=== PATIENT | female | born 1945 | race Caucasian/White ===

== ENCOUNTER → 2021-03-14 | Outpatient (CLI) | payer MEDICARE, OTHER ==
[~2021-03-14] MED LIST: DICLOFENAC GEL 1% TOP; DITROPAN 5 MG TA5 MG PO; DOCUSATE SODIU250 MG PO; HYDROCODON-ACE1 EAC6 PO; HYDROCODONE-AC1 EACH PO; IBUPROFEN600 MG PO; KLONOPIN1 MG PO; LACTULOSE10 GM/15 M PO; LEVOTHYROXINE50 MC1 PO; LEVSIN-SL0.125 MG SL; MAGNESIUM200 MG PO; PRAVASTATIN SOD40 MG PO; PROTONIX40 MG PO; STOOL SOFTNER PO; SUCRALFATE PO; TERCONAZOLE 0.4% TOP; TRAZODONE HCL100 MG PO; VITAMIN D3125 MCG PO; XYZAL5 MG PO
[2021-03-14 13:51] LABS: HEMOGLOBIN 13.9 gm/dl (12.3-15.3); RED BLOOD COUNT 4.66 M/UL (4.00-5.10); WHITE BLOOD COUNT 6.8 K/UL (4.5-11.0)
== END ==
LOC: OPSV2 12:30
PROVIDERS: Obstetrics & Gynecology
DX: Z01.818 Encounter for other preprocedural examination (principal); N81.9 Female genital prolapse, unspecified
CPT/HCPCS: 81001; 85025; 93005

== ENCOUNTER 2021-03-19 07:23 | Day surgery (SDC) | payer MEDICARE, OTHER ==
[~2021-03-19] VITALS: Ht 152.4 cm; Wt 58.1 kg
[~2021-03-19 07:23] MED LIST changes: -DITROPAN 5 MG TA5 MG PO; -DOCUSATE SODIU250 MG PO; -HYDROCODONE-AC1 EACH PO; -IBUPROFEN600 MG PO; -SUCRALFATE PO
[2021-03-19] MEDS ORDERED: SUCRALFATE PO (08:10)
[2021-03-19] MEDS ORDERED: HYDROCODONE-AC1 EACH PO (09:47)
[2021-03-19] MEDS ORDERED: DOCUSATE SODIU250 MG PO (09:47)
[2021-03-19] MEDS ORDERED: DITROPAN 5 MG TA5 MG PO (09:47)
[2021-03-19] MEDS ORDERED: IBUPROFEN600 MG PO (09:47)
== END 2021-03-20 13:11 | disposition home or self-care (01) ==
LOC: OR 07:23 → OB 12:43 → OR 14:30
DX: N81.10 Cystocele, unspecified (principal); R33.9 Retention of urine, unspecified; M79.7 Fibromyalgia; K59.00 Constipation, unspecified; K21.9 Gastro-esophageal reflux disease without esophagitis; E03.9 Hypothyroidism, unspecified
CPT/HCPCS: 71045; C1769; J1100; J1580; J2250; J2270; J2405; J2704; J3010; J7050; J7120

== ENCOUNTER → 2022-05-27 | Outpatient (CLI) | payer MEDICARE, OTHER ==
[~2022-05-27] MED LIST changes: +DITROPAN 5 MG TA5 MG PO; +DOCUSATE SODIU250 MG PO; +HYDROCODONE-AC1 EACH PO; +IBUPROFEN600 MG PO; +SUCRALFATE PO
== END ==
LOC: KOH-I 05-16 13:00
DX: M75.101 Unspecified rotator cuff tear or rupture of right shoulder, not specified as traumatic (principal); M19.011 Primary osteoarthritis, right shoulder
CPT/HCPCS: 73200

== ENCOUNTER → 2022-06-17 | Outpatient (CLI) | payer MEDICARE, OTHER ==
[~2022-06-17] MED LIST changes: +CASCARA SAGRADA PO; -LEVOTHYROXINE50 MC1 PO; +LEVOTHYROXINE75 MCG PO; +MULTI-VITAMIN1 EACH PO; +SINGULAIR10 MG PO
[2022-06-17 13:50] LABS: HEMOGLOBIN 14.5 gm/dl (12.3-15.3); RED BLOOD COUNT 4.91 M/UL (4.00-5.10); WHITE BLOOD COUNT 4.8 K/UL (4.5-11.0)
[2022-06-17 14:24] LABS: BUN/CREATININE RATIO 20 (0-10)
== END ==
LOC: OPSV2 11:25 → EDSTATUS 12:30 → OPSV2 12:30
PROVIDERS: Orthopaedic Surgery
DX: Z01.818 Encounter for other preprocedural examination (principal); M19.011 Primary osteoarthritis, right shoulder; M75.101 Unspecified rotator cuff tear or rupture of right shoulder, not specified as traumatic
CPT/HCPCS: 36415; 71046; 80048; 85027; 93005

== ENCOUNTER 2022-07-05 06:44 | Day surgery (SDC) | payer MEDICARE, OTHER ==
[~2022-07-05] VITALS: Ht 154.9 cm; Wt 61.2 kg
[~2022-07-05 06:44] MED LIST changes: +STOOL SOFTENER100 M1 PO; -STOOL SOFTNER PO
[2022-07-05] MEDS ORDERED: CELEBREX200 MG PO (07:56)
[2022-07-05] MEDS ORDERED: HYDROCODON-ACE1 EAC4 PO (07:57)
[2022-07-05 08:00] LABS: BUN/CREATININE RATIO 27 (0-10)
[2022-07-05] MEDS ORDERED: ROXICODONE5 MG PO (14:58)
== END 2022-07-06 13:16 | disposition home or self-care (01) ==
LOC: OR 06:44 → M/S 13:00 → OR 07-06 13:16
PROVIDERS: Orthopaedic Surgery
DX: M12.811 Other specific arthropathies, not elsewhere classified, right shoulder (principal); M25.711 Osteophyte, right shoulder; M75.101 Unspecified rotator cuff tear or rupture of right shoulder, not specified as traumatic; J44.9 Chronic obstructive pulmonary disease, unspecified; Z88.1 Allergy status to other antibiotic agents; Z88.5 Allergy status to narcotic agent; Z88.8 Allergy status to other drugs, medicaments and biological substances
CPT/HCPCS: 73020; 80048; 86850; 86900; 86901; 97116; 97116-GP-CQ; 97161; 97165; 97530-GP-CQ; 97535; C1713; C1776; J0171; J0690; J1100; J1885; J2270; J2704; J2710; J2795